=== PATIENT | male | born 1985 | race Caucasian/White ===

== ENCOUNTER 2020-06-18 05:42 | Day surgery (SDC) | payer OTHER ==
[~2020-06-18 05:42] MED LIST: LACTATED RINGERS 1000 ML IV PRN
[2020-06-18] MEDS ORDERED: LIDOCAINE 0.5% INJ-PF (5 MG/ML) 50 ML SDV ONE (06:26)
[2020-06-18] MEDS ORDERED: MIDAZOLAM 2 MG/2 ML INJ ONE (06:31)
[2020-06-18] MEDS ORDERED: FENTANYL CITRATE INJ/PF 100 MCG/2 ML AMPUL ONE (06:31)
[2020-06-18] MEDS ORDERED: PROPOFOL INJ 200 MG/20 ML VIAL IV ONE ×2 (06:32→09:43)
[2020-06-18] MEDS ORDERED: FENTANYL CITRATE INJ/PF 100 MCG/2 ML AMPUL IV PRN ×3 (07:01)
[2020-06-18] MEDS ORDERED: MEPERIDINE HCL/PF INJ 25 MG/1 ML DISP.SYRIN IV PRN (07:01)
[2020-06-18] MEDS ORDERED: DIPHENHYDRAMINE HCL 50 MG/ML VIAL IV PRN (07:01)
[2020-06-18] MEDS ORDERED: PROMETHAZINE HCL INJ 25 MG/1 ML VIAL IV PRN ×2 (07:01)
[2020-06-18] MEDS ORDERED: MORPHINE SULFATE 10 MG/ML INJ IV PRN (07:01)
--- NOTE | 2020-06-18 07:43 | Discharge Summary ---
Discharge Summary (SDC) - Discharge Final Diagnosis: Internal hemorrhoids Date of Surgery: 06/18/20 Discharge Date: 06/18/20 Condition: Stable Treatment or Instructions: Discharge home. Diet as tolerated. Activity: Nonstrenuous. Fiber supplement twice daily. Stool softeners as needed. 5% lidocaine ointment, apply to rectum as needed. Ibuprofen 80 mg p.o. 3 times daily with meals. [id number] Tylenol intermittently as needed. Sitz bath in warm soapy water 3 times daily and after bowel movements. Prescriptions: Ibuprofen [Motrin 800 mg Tablet] 800 mg PO Q8H PRN #42 tab PRN Reason: Referrals: ROMANA BARAJAS DO [Primary Care Provider] - Discharge Diet: As Tolerated Respiratory Treatments at Home: Deep Breathing/Coughing, Incentive Spirometer Discharge Activity: Balance Activity w/Rest, No Lifting Over 10 Pounds, No Lifting/Push/Pulling Home Care Assistance: None Needed Report the Following to Your Physician Immediately: Shortness of Breath, Nausea, Vomiting, Increase in Pain, Unusual Bleeding, Redness, Swelling
--- NOTE | 2020-06-18 07:45 | Operative Report ---
Nonrecallable Operative Report DATE OF SURGERY: 06/18/20 PREOPERATIVE DIAGNOSIS: Internal hemorrhoids, rectal itching POSTOPERATIVE DIAGNOSIS: Same as above OPERATION: Rubber band ligation of internal hemorrhoids x5 SURGEON: IDANIA SANCHEZ ANESTHESIA: LMAC TISSUE REMOVED OR ALTERED: None COMPLICATIONS: None apparent ESTIMATED BLOOD LOSS: Minimal PROCEDURE: Drains/implants: None. Procedure in detail: After informed consent was obtained, the patient was brought to the operating room and laid in the left lateral decubitus position. The Hill-Tolbert retractor was inserted into the anus. Enlarged hemorrhoids were found circumferentially. Rubber band ligation was performed circumferentially in the anal canal, above the dentate line. 5 hemorrhoid bands were placed in total. Once all the obvious hemorrhoids were ligated, the procedure was concluded. All sponge, instrument, and needle counts were correct x2. Condition: Stable.
[2020-06-18] MEDS ORDERED: ACETAMINOPHEN 1,000 MG/100 ML RTUPB IV ONE (07:56)
[2020-06-18] MEDS ORDERED: LIDOCAINE 2% VISCOUS SOLN 15 ML UDCUP ONE (07:56)
[2020-06-18 09:24] VITALS: BP 123/87
== END 2020-06-18 09:15 | disposition home or self-care (01) ==
LOC: OROUT 05:42
PROVIDERS: ATTEND Surgery
DX: K64.8 Other hemorrhoids (principal); Z20.828 Contact with and (suspected) exposure to other viral communicable diseases; K21.9 Gastro-esophageal reflux disease without esophagitis; M25.50 Pain in unspecified joint; Z79.899 Other long term (current) drug therapy
CPT/HCPCS: 87635; 00902; 46221; J3490 ×2; J2704; J0131; C9803; 902; J2250; J3010